=== PATIENT | female | born 1995 | race Two or more races ===

== ENCOUNTER 2019-11-17 09:40 | Emergency (ER) | payer OTHER ==
[~2019-11-17] VITALS: Ht 157.5 cm; Wt 54.0 kg
[2019-11-17 11:10] LABS: BILIRUBIN,URINE NEGATIVE (NEG); CLARITY,URINE CLEAR; COLOR,URINE YELLOW; NITRITE,URINE NEGATIVE (NEG); PROTEIN,URINE NEGATIVE (NEG-TRACE)
[2019-11-17 11:15] LABS: INFLUENZA A PATIENT NEGATIVE (NEGATIVE); INFLUENZA B PATIENT NEGATIVE (NEGATIVE)
--- NOTE | 2019-11-17 11:21 | PHYS DOC ---
Past Medical History Past Medical History: No Pertinent History Past Surgical History: No Surgical History Smoking Status: Never Smoker Alcohol Use: None Adult General Chief Complaint Chief Complaint: FEVER HPI HPI Patient is a 23 year old [place] female who recently came to [place] from [place] and traveled through the [place]. She complains of a fever that started 5 days ago and 4 days ago she developed some left-sided flank pain. Her symptoms seem to have waxed and waned since that time. Child complains of some body aches. No nausea vomiting diarrhea. No cough or congestion. No sick contacts or exposures to persons that are considered high risk. Review of Systems Review of Systems All other systems were reviewed and found to be within normal limits, except as documented in this note. Allergies Allergies Allergies Coded Allergies Type Severity Reaction Last Updated Verified No Known Drug Allergies 11/17/19 No Physical Exam Physical Exam Constitutional: Well developed, well nourished, no acute distress, non-toxic appearance. [] HENT: Normocephalic, atraumatic, bilateral external ears normal, oropharynx moist, no oral exudates, nose normal. [] Eyes: PERRLA, EOMI, conjunctiva normal, no discharge. [] Neck: Normal range of motion, no tenderness, supple, no stridor. [] Cardiovascular:Heart rate regular rhythm, no murmur [] Lungs & Thorax: Bilateral breath sounds clear to auscultation [] Abdomen: Bowel sounds normal, soft, no tenderness, no masses, no pulsatile masses. [] Skin: Warm, dry, no erythema, no rash. [] Back: No tenderness, no CVA tenderness. [] Extremities: No tenderness, no cyanosis, no clubbing, ROM intact, no edema. [] Neurologic: Alert and oriented X 3, normal motor function, normal sensory function, no focal deficits noted. [] Psychologic: Affect normal, judgement normal, mood normal. [] Current Patient Data Vital Signs Vital Signs Date Time Temp Pulse Resp B/P (MAP) Pulse Ox O2 Delivery O2 Flow Rate FiO2 11/17/19 09:50 97.9 82 16 119/70 (86) 99 Room Air 97.9 Lab Values Laboratory Tests Test 11/17/19 10:15 11/17/19 10:35 Influenza Type A Antigen Negative (NEGATIVE) Influenza Type B Antigen Negative (NEGATIVE) Urine Collection Type Unknown Urine Color Yellow Urine Clarity Clear Urine pH 7.0 (<5.0-8.0) Urine Specific [place] 1.020 (1.000-1.030) Urine Protein Negative mg/dL (NEG-TRACE) Urine Glucose (UA) Negative mg/dL (NEG) Urine Ketones (Stick) 40 mg/dL (NEG) Urine Blood Negative (NEG) Urine Nitrite Negative (NEG) Urine Bilirubin Negative (NEG) Urine Urobilinogen Dipstick 1.0 mg/dL (0.2 mg/dL) Urine Leukocyte Esterase Negative (NEG) Urine RBC 1-2 /HPF (0-2) Urine WBC Occ /HPF (0-4) Urine Squamous Epithelial Cells Mod /LPF Urine Bacteria Few /HPF (0-FEW) Urine Mucus Marked /LPF Urine Test Negative (NEG) EKG EKG [] Radiology/Procedures Radiology/Procedures [] Course & Med Decision Making Course & Med Decision Making Pertinent Labs and Imaging studies reviewed. (See chart for details) 1121: This patient is seen for fever and body aches. Given her travel history we did speak to the health department who does not recommend screening for coronavirus at this time. We will check the patient for influenza and for UTI. 1138: Patient negative for influenza and UTI. She likely has a viral syndrome. Recommend ibuprofen and Tylenol and follow-up with primary care physician if symptoms worsen or do not resolve in the next 3 to 5 days Dragon Disclaimer Dragon Disclaimer This electronic medical record was generated, in whole or in part, using a voice recognition dictation system. Departure Departure Impression: Primary Impression: Viral syndrome Disposition: HOME, SELF-CARE Condition: STABLE Referrals: NO PCP (PCP) Patient Instructions: Viral Syndrome Additional Instructions: Please push oral fluids and take motrin and tylenol for fever, pain. Follow up with your doctor or return to the ED if your symptoms worsen or do not improve in the next 3-5 days. NUSRAT AL DO Nov 17, 2019 11:21
[2019-11-17 11:23] LABS: U PREG PATIENT NEGATIVE (NEG)
[2019-11-17 11:33] VITALS: BP 108/77
[2019-11-17 11:33] LABS: WBC,URINE OCC /HPF (0-4)
[2019-11-17 11:34] LABS: BACTERIA,URINE FEW /HPF (0-FEW); SQUAMOUS EPITHELIAL CELL,UR MOD /LPF
== END 2019-11-17 11:57 | disposition home or self-care (01) ==
LOC: ER 09:40
DX: B34.9 Viral infection, unspecified (principal)
CPT/HCPCS: 81001; 81025; 87804; 99283